=== PATIENT | male | born 1995 | race Caucasian/White ===

== ENCOUNTER 2019-05-21 13:42 | Emergency (ER) | payer BC ==
[~2019-05-21] VITALS: Ht 177.8 cm; Wt 77.1 kg
[2019-05-21 13:43] VITALS: BP 136/70
[2019-05-21] MEDS ORDERED: MUCINEX1200 M1 PO (14:37)
[2019-05-21] MEDS ORDERED: PREDNISONE20 M1 PO (14:37)
== END 2019-05-21 14:40 | disposition home or self-care (01) ==
LOC: ED 13:42
DX: J45.901 Unspecified asthma with (acute) exacerbation (principal); F17.200 Nicotine dependence, unspecified, uncomplicated; Z91.048 Other nonmedicinal substance allergy status; Z88.0 Allergy status to penicillin